=== PATIENT | male | born 1960 | race Caucasian/White ===

== ENCOUNTER 2021-10-24 11:58 | Outpatient (CLI) | payer OTHER, SELFPAY ==
--- NOTE | ~2021-10-24 | XR_ITS ---
EXAMINATION: XR ankle LT min 3V DATE: 10/24/2021 12:20 INDICATION: Left ankle pain TECHNIQUE: Anteroposterior, lateral, mortise, and additional oblique view of the ankle were obtained. COMPARISON: None. FINDINGS: No acute fracture is identified. There is heterotopic ossification lateral to the distal fi bula. There is moderate osteoarthritis of the tibiotalar joint. Mild osteoarthritis is noted in the m idfoot. There is soft tissue swelling of the visualized distal leg and ankle. More focal soft tissue swelling is seen near the Achilles insertion on the lateral view. IMPRESSION: 1. Soft tissue swelling, osteoarthritis, and sequela of prior injury without acute osseous abnormalit y identified. Reviewed, dictated and finalized at location A. LE ARCHITECT IMPRESSION: 1. Soft tissue swelling, osteoarthritis, and sequela of prior injury without ac tanana osseous abnormality identified.
== END 2021-10-24 11:59 | disposition home or self-care (01) ==
LOC: ANHLAB 12:06
PROVIDERS: PCP Internal Medicine; Visit Provider Internal Medicine
DX: M79.89 Other specified soft tissue disorders (principal); M19.072 Primary osteoarthritis, left ankle and foot
CPT/HCPCS: 73610

== ENCOUNTER 2021-11-29 07:59 | Outpatient (CLI) | payer OTHER, SELFPAY ==
--- NOTE | ~2021-11-29 | US_ITS ---
EXAMINATION: US art doppler w shin REN EXAM DATE: 11/29/2021 09:25 INDICATION: I73.9 - Peripheral vascular disease, unspecified. Leg edema, hypertension. TECHNIQUE: Segmental pressures and plethysmographic and Doppler waveforms of the brachial and lower e xtremity arteries were obtained. There is no prior study for comparison. FINDINGS: Right and left brachial artery pressures of 123 mm Hg and 129 mm Hg, respectively, are concordant (no rmal difference <= 30 mmHg). The right and left thigh-brachial pressure indices are 0.98, 1.51 respe ctively (normal > 1.2). RIGHT LEG: The ankle-brachial index (AKIRA) is 1.01 (normal >= 0.9-1). The great toe-brachial index (TBI) is 0.56 (normal >= 0.65). The lower extremity ratios, segmental pressure gradients as follows; Proximal superficial femoral artery:- 0.98 (127 mmHg). Distal superficial femoral artery: ----- 0.98 (127 mmHg). Popliteal: 1.03 (133 mmHg). Dorsalis pedis: 1.00 (129 mmHg). Posterior tibial: 1.01 (130 mmHg). (Normal gradients <= 20-30 mmHg between adjacent levels on the same leg or the same levels on the two legs). Arterial waveforms are biphasic through popliteal, monophas ic below. LEFT LEG: The ankle-brachial index (AKIRA) is 0.97 (normal >= 0.9-1). The great toe-brachial index (TBI) is 0.98 (normal >= 0.65). The lower extremity ratios, segmental pressure gradients as follows; Proximal superficial femoral artery:- 1.51 (195 mmHg). Distal superficial femoral artery: ----- 1.12 (144 mmHg). Popliteal: 1.09 (141 mmHg). Dorsalis pedis: 0.90 (116 mmHg). Posterior tibial: 0.97 (125 mmHg). (Normal gradients <= 20-30 mmHg between adjacent levels on the same leg or the same levels on the two legs). Arterial waveforms are biphasic. IMPRESSION: 1. Right ankle-brachial index 1.01, normal. 2. Left ankle-brachial index 0.97, normal. 3. Segmental pressures as above. Reviewed, dictated and finalized at location A. NTS EXAMINER
--- NOTE | ~2021-11-29 | US_ITS ---
EXAMINATION: US venous doppler LE BI EXAM DATE: 11/29/2021 09:25 INDICATION: R60.0 - Localized edema TECHNIQUE: Multiple grayscale, color flow and Doppler images of the lower extremity venous systems bi laterally were obtained and reviewed. Saphenous venous mapping. The exam was reviewed on 11/29/2021. There is no prior study for comparison. FINDINGS: Right side: The right common femoral, femoral and profunda veins demonstrate normal color flow, respi ratory variation, augmentation and compressibility. Compressibility, color flow confirmed within the right popliteal, posterior tibial, peroneal, and greater saphenous veins. Right Standing Venous Mapping: reflux seconds duration; vein size. Greater saphenous origin: 0 seconds; 0.4 mm. Greater saphenous mid thigh:------ 3 seconds; 0.26 mm. Greater saphenous below knee:--- 0 seconds; 0.28 mm. Lesser saphenous proximally:------ 0 seconds; 0.10 mm. Lesser saphenous distally: Not visualized. Left side: The left common femoral, femoral and profunda veins demonstrate normal color flow, respira tory variation, augmentation and compressibility. Compressibility, color flow confirmed within the l eft popliteal, posterior tibial, peroneal, and greater saphenous veins. Left Standing Venous Mapping: reflux seconds duration; vein size. Greater saphenous origin: 0 seconds; 0.41 mm. Greater saphenous mid thigh:------ 0 seconds; 0.20 mm. Greater saphenous below knee:--- 0 seconds; 0.19 mm. Lesser saphenous proximally:------ 0 seconds; 0.14 mm. Lesser saphenous distally: 0 seconds; 0.13 mm. IMPRESSION: 1. No lower extremity deep venous thrombosis bilaterally. 2. Right mid thigh greater saphenous venous reflux. Reviewed, dictated and finalized at location A. AIR HOST
== END 2021-11-29 08:00 | disposition home or self-care (01) ==
PROVIDERS: PCP Internal Medicine; Visit Provider Orthopaedic Surgery
DX: I73.9 Peripheral vascular disease, unspecified (principal); R60.0 Localized edema
CPT/HCPCS: 93923; 93970

== ENCOUNTER 2022-01-09 15:30 | Outpatient (RCR) | payer OTHER, SELFPAY ==
--- NOTE | 2021-12-15 16:07 | PTOPEVAL ---
PHYSICAL THERAPY EVALUATION AND PLAN OF CARE 12-15-21 Thank you for referring Emmanuel Arciniega to [facility] for the diagnosis of B LE lymphedema. He is scheduled to be seen for therapy? 2 x/week for 4 weeks. Please review, sign, date and return this plan of care MARILYN. I agree with and certify that the following plan of care is medically necessary. Referring Physician Date Attending Provider: Collins Gardner MD PT evaluation Document 12/15/21 15:05 ANG (Rec: 12/15/21 16:07 ANG [id number]) Past Medical History Source of Past Medical History Patient Neurological History Hx Neurological Disorders No Significant History Cardiovascular History Hx Hypertension Yes: meds control Respiratory History Hx Other Respiratory Disorders Yes: smoker Gastrointestinal History Hx Gastrointestinal Disorders No Significant History Genitourinary History Hx Genitourinary Disorders No Significant History Musculoskeletal History Hx Arthritis Yes: B knees; L ankle Hx Other Musculoskeletal Disorders Yes: L crush injury with reconstruction~42 yr ago,graft R calf; Endocrine History Hx Endocrine Disorders No Significant History Other History Hx Cancer Yes: oral cancer- surgical removal- 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 radiation Evaluation Information Problem Diagnosis B LE lymphedema Onset Oct 2021 Diagnostic Tests X-Rays For This Problem Yes: L ankle severe degenerative changes, osteophyte & ant impingement Prior Level of Function Activity Level (Last 3 Months) 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 Activity of Daily Living Ability Independent Indoor/Home Mobility Independent Community Mobility Independent Stairs Ability Independent Functional Cognition (Planning, Shopping Independent , Taking Medications) Cooking Yes Cleaning Yes Laundry Yes Shopping Yes Driving Yes Pain Assessment Timing of Pain Assessment Timing of Pain Assessment Assessment Pain Scale Pain Scale Used Numeric (1 - 10) Self Report Pain Assessment Bilateral Leg(s) Reported Pain Level 0 Pain Score Pain Score 0: Self Report Additional Pain Score Comments when legs were more swollen they were tender and hurt--now do not have pain Interventions Used Interventions Used By Clinicians Education Lower Extremity Range of Motion General Lower Extremity Range of Motion Gross Lower Extremity Range of Motion active ROM L ankle DF (-5'),PF Comments
--- NOTE | 2022-01-05 12:02 | PCPTNOTE ---
pt called and canceled today's appt due to bad weather;
--- NOTE | 2022-01-09 16:04 | PTOPEVAL ---
PHYSICAL THERAPY DISCHARGE 01-09-22 Refer to the clinical summary below, for his status today, compared to the initial evaluation. He has improved and the goals were achieved; therefore, he will be discharged from PT at this time. Thank you for referring Emmanuel Arciniega to [facility].? Please review, sign, date and return this Discharge report MARILYN. I agree with and certify that the following plan of care is medically necessary. Referring Physician Date Attending Provider: Collins Gardner MD Document 01/09/22 15:30 ANG (Rec: 01/09/22 16:04 ANG [id number]) Assessment Status Discharge Subjective Information Ed reports: compression socks Query Text:As Reported By Patient/ are comfortable, do not have Family any problems with getting them on/off; feels like ready to be finished with therapy; pleased with how his legs look and how small they are; Pain Assessment Self Report Pain Level 0 Skin Inspection Location Left Lower Extremity,Right Lower Extremity Palpation Findings Warm Skin Temperature Tissue Texture Normal Lymphedema Stage I Skin Inspection Comment R and L lower leg with good skin color/ no redness, without any firmness or fibrotic tissue; no tenderness with palpation; pt to dept with compression calf high garments intact; has been wearing them for the past 5 days; good fit; Mediven Plus, size V!, 20-30 mmHg, standard length with silicone band top; he reports comfort with them and not having any issues with fit or don/doffing them; education: reviewed self MLD; replacement of compression garments ~ every 6 months, or whenever they begin to lose their support; monitor skin; if he does start to have some swelling in legs, he has info for obtaining Solaris foot piece and Juxtafit to wear for compression at night with
== END 2022-01-10 15:34 | disposition home or self-care (01) ==
LOC: ANHPT 15:30
PROVIDERS: PCP Internal Medicine; Visit Provider Orthopaedic Surgery
DX: R60.0 Localized edema (principal)
CPT/HCPCS: 97140; 97161

== ENCOUNTER 2023-04-13 16:24 | Emergency (ER) | payer OTHER, SELFPAY ==
--- NOTE | ~2023-04-13 | XR_ITS ---
EXAMINATION: XR abdomen/kub 1V DATE: 04/13/2023 17:43 INDICATION: Constipation TECHNIQUE: A supine view of the abdomen on 2 radiographs was obtained. COMPARISON: None. FINDINGS: Moderate amount of gas and stool scattered throughout the colon with possibly 7 cm ball of stool at t he rectum. No dilated loops of gas-filled bowel to suggest obstruction. Lung bases are clear. Heart s ize is normal. Moderate bilateral hip and sacroiliac osteoarthritis. IMPRESSION: 1. Moderate amount of gas and stool in the colon most notable for a 7 cm ball of stool at the rectum consistent with provided history of constipation. Reviewed, dictated and finalized at location A. IMPRESSION: 1. Moderate amount of gas and stool in the colon most notable for a 7 cm ball o f stool at the rectum consistent with provided history of constipation.
[2023-04-13 16:31] VITALS: BP 131/56; PULSE 94; RESP 16; TEMP 36.8; O2SAT 93
--- NOTE | 2023-04-13 17:05 | ED.GENADULT ---
HPI - General Adult General Chief complaint: Unspecified Stated complaint: constipation Time Seen by Provider: 04/13/23 16:54 History of Present Illness HPI narrative: Patient is a 62-year-old male with a history of oral cancer currently undergoing chemotherapy and radiation here due to constipation. Patient states that he has had small caliber liquid stools for the past 3 days but has not had a full satisfying bowel movement. He denies any abdominal pain but does report some rectal fullness. Today he has had some urinary retention. No fevers, chills, nausea, vomiting. No history of small bowel obstructions, he has never had a colonoscopy. Related Data Home Medications Medication Instructions Recorded Confirmed tamsulosin 0.4 mg capsule (Flomax) 0.4 mg PO DAILY 11/16/19 03/14/22 finasteride 5 mg tablet 5 mg PO DAILY 09/06/21 03/14/22 sildenafil (pulm.hypertension) 20 20 mg PO DAILY 09/06/21 03/14/22 mg tablet Allergies Allergy/AdvReac Type Severity Reaction Status Date / Time Penicillins Allergy Mild Unknown Verified 04/13/23 16:44 Sulfa (Sulfonamide Allergy Mild Hives Verified 04/13/23 16:44 Antibiotics) Review of Systems Review of Systems: Gen.: Denies fevers or chills Eyes: Denies eye pain or visual change ENT: Denies congestion Respiratory: Denies shortness of breath or cough CV: Denies chest pain or palpitations GI: Reports constipation denies burning, urgency, frequency or hematuria Musculoskeletal: Denies back pain or muscle pain Neuro: Denies numbness, tingling, weakness or focal weakness Skin: Denies rash Except as documented, all other systems reviewed and negative [facility] Past Medical History Medical History Arterial insufficiency of lower extremity Arthritis Bilateral lower extremity edema HTN (hypertension) Surgical History Surgical History History of ankle surgery Left ankle/heel reconstruction on 11/13/79 d/t crush injury at work per patient questionnaire History of cataract removal with insertion of prosthetic lens Family History Family History Sibling Family history of diabetes mellitus in first degree relative, Onset Age: 45 Patient's brother is Father Patient's father is Mother Patient's mother is Social History Social History Smoking packs per day: 0.5 Smoking cigarettes per day: 10.0 Smoking status: Current every day smoker Tobacco type: cigarettes Second hand tobacco smoke exposure: No Alcohol intake: current Drinks per week: 14 Substance use: never Substance use type: does not use Occupation/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 Head: Normocephalic and atraumatic. EYES: PERRLA/EOMI, conjunctivae clear NOSE: No nasal drainage EARS: External ear normal in appearance THROAT: Oropharynx is clear. Mucous membranes are moist. NECK: Supple. No adenopathy, no masses. RESPIRATORY: Airway patent, respirations nonlabored. Clear to auscultation bilaterally, no rales, rhonchi, wheezing. CARDIOVASCULAR: Regular rate and rhythm without murmurs, rubs, or gallops. ABDOMINAL: Normoactive bowel sounds. Soft, nontender, nondistended. No rebound tenderness or guarding. MUSCULOSKELETAL: Extremities are warm and well-perfused. Moves all extremities well. No edema. NEURO: Normal speech. No focal neurologic deficits. SKIN: Skin is warm and dry. No rashes. PSYCHIATRIC: Normal affect/mood.. Course Vital Signs Vital signs: Vital Signs Temperature 98.3 F 04/13/23 16:31 Pulse Rate 94
[2023-04-13 17:35] LABS: Eosinophils Percent Auto 0.3 % (0-4.4); Hematocrit 28.8 % (42.0-52.0); Hemoglobin 9.8 g/dL (14.0-18.0); Immature Granulocyte Absolute 0.03 K/mm3 (0.00-0.031); Immature Granulocyte Percent A 0.8 % (0-0.5); Lymphocytes Absolute Auto 0.28 K/mm3 (0.9-3.2); Lymphocytes Percent Auto 7.1 % (18.3-44.2); Mean Corpuscular Hemoglobin 32.7 pg (26-34); Mean Platelet Volume 8.3 fl (7.4-10.4); Monocytes Absolute Auto 0.3 K/mm3 (0.1-0.6); Monocytes Percent Auto 6.3 % (2.6-8.5); Neutrophils Absolute Auto 3.4 K/mm3 (1.3-6.7); Neutrophils Percent Auto 85.5 % (45.5-73.1); Platelet Count Result 151 k/mm3 (150-375); Red Cell Distribution Width 12.8 % (11.5-14.5)
[2023-04-13 17:55] LABS: Lipase 40 U/L (23-300)
[2023-04-13] MEDS: MAGNESIUM HYDROXIDE SUSP 30 ML UDC PO (18:05)
[2023-04-13 18:09] LABS: Alanine Aminotransferase 19 U/L (6-50); Albumin Level 4.3 g/dL (3.5-5.1); Alkaline Phosphatase 78 U/L (38-126); Anion Gap 9 mmol/L (8-16); Aspartate Amino Transferase 20 U/L (17-59); Bilirubin,Total 0.9 mg/dL (0.2-1.3); Blood Urea Nitrogen 25 mg/dL (9-20); Carbon Dioxide 26 mmol/L (22-30); Chloride 100 mmol/L (98-107); Estimated CRCL calculation 64 ml/min; Estimated Glomerular Filt Rate > 60; Glucose 127 mg/dL (65-110); Magnesium 1.7 mg/dL (1.6-2.3); Potassium 4.3 mmol/L (3.4-5.0); Sodium 135 mmol/L (137-145)
--- NOTE | 2023-04-13 19:02 | PC.NURSE ---
Patient unable to retain enema. patient on bedside commode at this time attempting to have a bowel movement
[2023-04-13 19:48] VITALS: BP 122/56; PULSE 73; RESP 15; O2SAT 97
== END 2023-04-13 19:56 | disposition home or self-care (01) ==
PROVIDERS: Emergency Provider Physician Assistant; PCP Internal Medicine
DX: K59.00 Constipation, unspecified (principal); F17.210 Nicotine dependence, cigarettes, uncomplicated; M19.90 Unspecified osteoarthritis, unspecified site; I10 Essential (primary) hypertension
CPT/HCPCS: 36415; 74018; 80053; 83690; 83735; 85025; 99283; A9270

== ENCOUNTER 2024-02-03 12:01 | Inpatient (IN) | payer OTHER, SELFPAY ==
--- NOTE | ~2024-02-03 | CT_ITS ---
EXAMINATION: CT abdomen pelvis w con DATE: 02/03/2024 17:19 INDICATION: abdominal pain TECHNIQUE: Computed tomography (CT) of the abdomen and pelvis was performed with 100 mL Omnipaque-350 intravenous contrast. Automated exposure control and iterative reconstruction technique were employe d. The dose-length product was 548.74 mGy-cm. COMPARISON: X-ray chest 07/01/2012. FINDINGS: Lower thorax: 1.4 cm right middle lobe nodule, not significantly changed since the chest radiograph 2011, benign. Coronary artery calcifications. Minimal dependent scar/atelectasis. Liver: Subcentimeter left lobe cysts/hemangiomas. Biliary/Gallbladder: Gallbladder is normal. No bile duct dilation. Pancreas: Moderate atrophy. Spleen: Normal. Adrenals:No mass. Kidneys: No suspicious mass, obstructing stone, or hydronephrosis. Multiple bilateral simple cysts an d subcentimeter hypodensities that also likely represent cysts. GI tract: Moderate distal esophageal and gastric wall edema. Diffuse colonic wall edema. No small or large bowel dilation. Appendix not visualized. Mesentery/Peritoneum: Small volume ascites. No mesenteric mass or free air. Retroperitoneum: No mass. Atherosclerotic abdominal aortic and/or arterial calcifications. Pelvis: Pelvic organs are within normal limits. Soft Tissues: Small fat-containing uncomplicated umbilical and bilateral inguinal hernias. Large righ t hydrocele. Bones: No acute osseous finding. IMPRESSION: Moderate esophagitis/gastritis. Diffuse colitis. Small volume ascites. Large right hydrocele Reviewed, dictated and finalized at location K.
[2024-02-03 12:04] VITALS: BP 107/52; PULSE 93; RESP 18; TEMP 36.4; O2SAT 94
--- NOTE | 2024-02-03 13:31 | ED.GENADULT ---
HPI - General Adult General Chief complaint: Abdominal Pain <Cinda Silvestre LAWN SPECIALIST - Last Filed: 02/03/24 13:36> Stated complaint: abd pain <Cinda Alas March LAWN SPECIALIST - Last Filed: 02/03/24 13:36> Time Seen by Provider: 02/03/24 13:31 <Cinda Alas March LAWN SPECIALIST - Last Filed: 02/03/24 13:36> Focused HPI: Emmanuel Arciniega is a 63 y/o male reports of having diarrhea for about 4 weeks and having abdominal pain/ abdominal bloating. No fever/chills. No nausea/vomiting Hx of mouth/tongue CA and finished radiation about 6 weeks ago. Denies noticing any blood in his stool GENERAL: and in no acute distress. HEAD: Normocephalic, atraumatic. CHEST: Clear to auscultation. ?No respiratory distress. HEART: Regular rate and rhythm.? NEURO: ?Alert and oriented x3. Patient screened in triage and initial orders placed.? ?Additional care and disposition to be based upon?diagnostic testing and treatment. <Cinda Alas March, LAWN SPECIALIST - Last Filed: 02/03/24 13:36> History of Present Illness HPI narrative: 63-year-old male presenting with diarrhea and abdominal pain. 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 His is at bedside and helps with the history. States that he was taking a lot of antibiotics around this time. Approximately 4 weeks ago he developed diarrhea. His PCP sent in for antidiarrheal medication but unfortunately the diarrhea has continued. Complains of intermittent lower abdominal cramping. States that he has diarrhea even whenever he just tries to urinate now. Reports decreased appetite but no vomiting. No chest pain or shortness of breath. No further complaints. <Sita Ferreira MD - Last Filed: 02/07/24 21:44> Related Data Home medications: Home Medications Medication Instructions Recorded Confirmed tamsulosin 0.4 mg capsule (Flomax) 0.4 mg PO HS 11/16/19 02/03/24 finasteride 5 mg tablet 5 mg PO DAILY 09/06/21 02/03/24 gabapentin 400 mg capsule 400 mg PO Q6H 02/03/24 02/03/24 prednisone 5 mg tablet 5 mg PO DAILY 02/03/24 02/03/24 <Cinda Alas March, - Last Filed: 02/03/24 13:36> Allergies/adverse reactions: Allergies Allergy/AdvReac Type Severity Reaction Status Date / Time Penicillins Allergy Mild Unknown Verified 02/03/24 23:15 Sulfa (Sulfonamide Allergy Mild Hives Verified 02/03/24 23:15 Antibiotics) <Cinda Alas March, - Last Filed: 02/03/24 13:36> Review of Systems Review of Systems: All systems reviewed & are unremarkable except as noted in HPI and below <Sita Ferreira MD - Last Filed: 02/07/24 21:44> [facility] Past Medical History Medical History: Medical History (Updated 02/05/24 @ 13:03 by Farzad Tipton APRN) Arterial insufficiency of lower extremity Arthritis Hypertension Polymyalgia rheumatica <Cinda Alas March, - Last Filed: 02/03/24 13:36> Surgical History Surgical History: Surgical History (Updated 02/04/24 @ 01:04 by Yodit Vazquez PA-C) History of ankle surgery Left ankle/heel reconstruction on 11/13/79 d/t crush injury at work per patient questionnaire History of cataract removal with insertion of prosthetic lens History of oral surgery 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 <Cinda Alas March, - Last Filed: 02/03/24 13:36> Family History Family History: Family History Sibling Family history of diabetes mellitus in first degree relative, Onset Age: 45 Patient's brother is Father Patient's father is Mother Patient's mother is <Cinda Alas March, - Last Filed: 02/03/24 13:36> Social History Social History: Social History (Updated 02/04/24 @ 01:05 by Yodit Vazquez PA-C) Social History: Surrogate medical decision maker: Molly Arciniega, spouse. Code status: Full code. Smoking packs per day: 0.5 Smoking cigarettes per day: 10.0 Years smoked: 40 Smok
--- NOTE | 2024-02-03 15:38 | PC.NURSE ---
1526 called from waiting room for MSE interventions, no response
[2024-02-03 16:26] LABS: Hematocrit 28.4 % (42.0-52.0); Hemoglobin 9.2 g/dL (14.0-18.0); Mean Corpuscular HGB Conc 32.4 g/dl (32-36); Mean Corpuscular Hemoglobin 30.8 pg (26-34); Mean Platelet Volume 9.1 fl (7.4-10.4); Platelet Count Result 236 k/mm3 (150-375); Red Blood Count 2.99 M/mm3 (4.6-6.20); Red Cell Distribution Width 13.6 % (11.5-14.5); White Blood Count 23.7 K/mm3 (4.5-10.0)
[2024-02-03 16:46] LABS: Alanine Aminotransferase 13 U/L (6-50); Albumin Level 2.8 g/dL (3.5-5.1); Alkaline Phosphatase 116 U/L (38-126); Anion Gap 5 mmol/L (8-16); Aspartate Amino Transferase 22 U/L (17-59); Bilirubin,Total 1.2 mg/dL (0.2-1.3); Blood Urea Nitrogen 36 mg/dL (9-20); Calcium 7.8 mg/dL (8.4-10.2); Carbon Dioxide 24 mmol/L (22-30); Chloride 96 mmol/L (98-107); Estimated CRCL calculation 40 ml/min; Estimated Glomerular Filt Rate 41; Glucose 95 mg/dL (65-110); Potassium 4.6 mmol/L (3.4-5.0); Sodium 125 mmol/L (137-145)
[2024-02-03 16:47] LABS: Appearance Urine Cloudy (Clear); Bacteria Urine None Seen /hpf; Bilirubin Urine 2+ (Negative); Blood Urine Negative (Negative); Color Urine Dark Yellow (Yellow); Glucose Urine UA Negative (Negative); Ketones Urine Trace mg/dL (Negative); Leukocyte Esterase Ur Trace LEU/UL (Negative); Need Manual Microscopic Reviewed; Nitrate Urine Negative (Negative); Protein Urine 1+ mg/dL (Negative); RBC Urine 0-2 /hpf (0-2); Specific Grav Ur 1.023 (1.001-1.035); Squamous Epithelial Cell Urine Few /hpf (Few); WBC Urine 0-5 /hpf (0-3)
[2024-02-03 16:48] LABS: Add Urine Microscopic? YES
[2024-02-03 16:54] LABS: Lipase < 10 U/L (23-300)
[2024-02-03 16:55] LABS: Band Neutrophils Percent 8 % (0-6); Lymphocytes Absolute Manual 0.94 K/mm3 (1.1-4.5); Monocytes Absolute Manual 1.89 K/mm3 (0.1-0.90); Monocytes Percent Manual 8 % (3-9); Neutrophils Absolute Manual 20.85 K/mm3 (1.3-6.7); Neutrophils Percent Manual 80 % (46-73); Total Cells Counted 100
[2024-02-03 16:56] LABS: Platelet Estimate Adequate (Adequate); Schistocytes None Seen
[2024-02-03] MEDS: SODIUM CHLORIDE 0.9% IV 1,000 ML 999 ML IV CONT ×2 (17:42)
[2024-02-03 19:55] VITALS: BP 104/52; PULSE 73; RESP 17; O2SAT 93
[2024-02-03 21:56] LABS: Anion Gap 4 mmol/L (8-16); Blood Urea Nitrogen 32 mg/dL (9-20); Calcium 7.1 mg/dL (8.4-10.2); Carbon Dioxide 22 mmol/L (22-30); Chloride 100 mmol/L (98-107); Estimated CRCL calculation 45 ml/min; Estimated Glomerular Filt Rate 47; Glucose 84 mg/dL (65-110); Potassium 4.2 mmol/L (3.4-5.0); Sodium 126 mmol/L (137-145)
[2024-02-03 21:57] LABS: Lactic Acid Reflex 0.7 mmol/L (0.7-2.0)
[2024-02-03 23:03] VITALS: BMI 22.6
--- NOTE | 2024-02-03 23:03 | ADMGEN ---
This patient, Emmanuel Arciniega, was admitted to Medical Room 254-01. Patient/family oriented to hospital policies and general routines including ID bracelet, bed and alarms, visiting hours, pain management, procedures, bathroom and other care routines, personal items, smoking policy, room service/diet, and visiting hours. Information on how to activate the Rapid Response Team has been discussed. Patient/Family are encouraged to report perceived risks to care and to ask questions if they do not understand what they are told or what they should do.
[2024-02-03 23:06] VITALS: BP 108/46; PULSE 83; RESP 16; TEMP 36.9; O2SAT 93
[2024-02-04 00:29] LABS: Glucose Point of Care 89 mg/dl (65-105)
--- NOTE | 2024-02-04 00:49 | PM.IMHP ---
H&P: HPI History of Present Illness Date/Time: 02/03/24 21:45 Chief Complaint: Abdominal pain and diarrhea. Narrative: This is a pleasant 63-year-old male smoker with 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 The patient provides the following history. He finished radiation approximately 6 weeks ago and during that treatment he was reportedly on several different antibiotics for unclear reasons. The last 4 weeks he has had multiple episodes of watery, foul-smelling stools which have been yellow in color. The last several days he has developed intermittent, diffuse abdominal discomfort and cramping. His appetite has not been great but he is able to eat now and has had his feeding tube removed. He is starting to feel a bit weak and occasionally lightheaded with position changes. He denies fever, chills, sweats, hematemesis, melena, and hematochezia. No recent travel or sick contacts. No history of C diff. In the ED: He was afebrile on arrival. Blood pressures have been running at the low end of normal. Labs were significant for WBC count of 23.7 with 8% bands, hemoglobin 9.2, sodium 125, chloride 96, BUN 36, creatinine 1.70, lactic acid 0.7, total protein 5.0, albumin 2.8. CT of the abdomen pelvis showed moderate esophagitis/gastritis, diffuse colitis, small volume ascites, and large right hydrocele. He was given a 2 L normal saline bolus and was started on fidaxomicin for suspected C diff and he is being admitted in this setting for further hydration. Review of Systems Review of Systems: Twelve systems were reviewed and are negative except for as per HPI. 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 Family History Family History Sibling Family history of diabetes mellitus in first degree relative, Onset Age: 45 Patient's brother is Father Patient's father is Mother Patient's mother is Social History Social History (Updated 02/04/24 @ 01:05 by Yodit Vazquez PA-C) Social History: Surrogate medical decision maker: Molly Arciniega, spouse. Code status: Full code. Smoking packs per day: 0.5 Smoking cigarettes per day: 10.0 Years smoked: 40 Smoking pack-years: 20.00 Smoking status: Current every day smoker Tobacco type: cigarettes Second hand tobacco smoke exposure: No Alcohol intake: current Drinks per week: 14 Substance use: never Substance use type: does not use Do You Feel Safe in your Home?: Yes Lack of Transportation: No Lack of Food: Never True Current Housing: I Have Housing Concerned About Future Housing: No Difficulty Paying Gas/Electric Bills: No Difficulty Paying for Meds: No Currently Unemployed: No Education: High School Diploma/GED Difficulty w/ Childcare or Family Care: No Occupation/Education: occupation Additional occupation/education comments: Maintenance Gender identity (if verbalized by the patient): Male Spiritual care concerns: No Meds Home Medications and Allergies Home Medications Medication Instructions Recorded Confirmed Type tamsulosin 0.4 mg capsule (Flomax) 0.4 mg PO HS 11/16/19 02/03/24 History finasteride 5 mg tablet 5 mg PO DAILY 09/06/21 02/03/24 History gabapentin 400 mg
[2024-02-04] MEDS: SODIUM CHLORIDE 0.9% IV 1,000 ML 150 ML IV CONT ×3 (01:42→17:40)
[2024-02-04 01:51] LABS: Creatinine Urine 208.2 mg/dL
[2024-02-04 02:35] LABS: Sodium Urine Random < 5 meq/L
[2024-02-04] MEDS: metroNIDAZOLE 500 MG/ISO 100ML 500 MG/100 ML BAG 100 MG IVPB (03:29)
[2024-02-04 05:23] LABS: Toxigenic C. Diff POSITIVE (NEGATIVE)
[2024-02-04] MEDS: GABAPENTIN 400 MG CAPSULE PO ×3 (05:40→17:40)
[2024-02-04 05:57] VITALS: BP 110/49; PULSE 86; RESP 18; TEMP 37.2; O2SAT 92
[2024-02-04 05:57] LABS: Hemoglobin 7.9 g/dL (14.0-18.0); Mean Corpuscular HGB Conc 31.6 g/dl (32-36); Mean Corpuscular Hemoglobin 30.6 pg (26-34); Mean Corpuscular Volume 96.9 fl (80-100); Mean Platelet Volume 8.9 fl (7.4-10.4); Platelet Count Result 229 k/mm3 (150-375); Red Blood Count 2.58 M/mm3 (4.6-6.20); Red Cell Distribution Width 13.6 % (11.5-14.5); White Blood Count 16.9 K/mm3 (4.5-10.0)
[2024-02-04 06:05] LABS: Anion Gap 2 mmol/L (8-16); Blood Urea Nitrogen 32 mg/dL (9-20); Calcium 7.1 mg/dL (8.4-10.2); Carbon Dioxide 22 mmol/L (22-30); Chloride 102 mmol/L (98-107); Estimated CRCL calculation 50 ml/min; Estimated Glomerular Filt Rate 51; Glucose 82 mg/dL (65-110); Magnesium 2.3 mg/dL (1.6-2.3); Potassium 4.1 mmol/L (3.4-5.0); Sodium 126 mmol/L (137-145)
--- NOTE | 2024-02-04 07:44 | PM.IMPN ---
Progress Note: A&P Assessment and Plan (1) C. difficile colitis: Code(s): A04.72 - Enterocolitis due to Clostridium difficile, not specified as recurrent Status: Acute Assessment and Plan: [address] of diarrhea with CT imaging diffuse colitis. C diff positive. Patient started on Dificid after receiving 1 dose of IV metronidazole. On continuous IV fluids due to low oral intake as well as significant dehydration resulting in KEELEY and hyponatremia. (2) KEELEY (acute kidney injury): Code(s): N17.9 - Acute kidney failure, unspecified Status: Acute Assessment and Plan: Last known baseline creatinine 1-1.1 with greater than 60 estimated GFR. On admission creatinine was 1.7 and estimated GFR 41. This morning creatinine 1.4 with estimated GFR 51. Continue IV fluids and recheck tomorrow. (3) Hyponatremia: Code(s): E87.1 - Hypo-osmolality and hyponatremia Status: Acute Assessment and Plan: Baseline sodium level appears to be 135-136 on prior labs, was 125 on admission and 126 this morning after IV fluids. Urine sodium less than 5. Continue IV fluids at this time and monitor for signs of fluid overload. (4) Dehydration: Code(s): E86.0 - Dehydration Status: Acute Assessment and Plan: see above (5) Protein calorie malnutrition: Code(s): E46 - Unspecified protein-calorie malnutrition Status: Acute Assessment and Plan: Soft diet, regular food choices. Encourage oral intake to replace diarrhea stools. Decreased appetite due to abdominal discomfort and colitis. Start Banotrol as recommended by Metal Buffer. (6) Hypertension: Code(s): I10 - Essential (primary) hypertension Status: Chronic Assessment and Plan: History of hypertension with borderline low blood pressures since admission likely due to KEELEY and dehydration. Will hold home antihypertensives at this time. (7) Polymyalgia rheumatica: Code(s): M35.3 - Polymyalgia rheumatica Status: Chronic Assessment and Plan: continue low-dose oral prednisone daily Time Spent With Patient Time with patient: Greater than 35 minutes Subjective Date/time seen: 02/04/24 07:44 Interval history: Patient was admitted after experiencing 4 weeks of diarrhea since being on multiple rounds of antibiotics. CT scanning shows diffuse colitis. Clinical suspicion by previous provider was C diff infection and he was started on Dificid. C diff was positive. This morning patient reports generalized abdominal pain states he has not received anything for pain at this point. He notes that he still having significant diarrhea. Initial labs yesterday had white blood cell count near 24,000 today that is down to 16.9. Hemoglobin was around 9 yesterday is down to 7.9 this morning but likely to be delusional due to IV fluid boluses and maintenance fluids at high rate. Patient has had prior oral surgery due to cancer and requires softer foods to to. He was previously started a clear liquid diet which we will advanced to regular. Patient will also be started on Banotrol due to recurrent loose stools. Will monitor daily labs. Sodium level noted to be 125 on admission is still 126 this morning. renal labs show what appears to be in KEELEY. Ordered iron studies and B12/ folate due to anemia. Suspect that anemia is due to slow loss from colon inflammation with frequent diarrhea as well some mild low iron/low iron binding capacity. I spoke with patient's on the phone to update on condition and anticipated course hospitalization including likely 4-7 day stay. Review of Systems Review of Systems: All systems reviewed & are unremarkable except as noted in HPI and below Gastrointestinal: Comments: Diarrhea and generalized abdominal pain Exam Narrative: General: Mildly ill-appearing male sitting up in bed in no acute distress. Weight: 73.5 kg. BMI 22.6. HEENT: [place]. S
[2024-02-04] MEDS: predniSONE 5 MG TABLET PO (09:31)
[2024-02-04] MEDS: FIDAXOMICIN 200 MG TABLET PO ×3 (09:31→20:06)
[2024-02-04] MEDS: HYDROcodone/acetaminophen (*CRX) 5-325 MG TABLET 1 TAB PO ×2 (09:31→20:06)
[2024-02-04] MEDS: PANTOPRAZOLE SODIUM IV 40 MG VIAL IV PUSH ×2 (09:32→20:10)
[2024-02-04] MEDS: FINASTERIDE 5 MG TABLET PO (09:32)
[2024-02-04 09:46] LABS: Iron 31 ug/dL (49-181)
[2024-02-04 09:57] LABS: Percent Iron Saturation 21 % (20-50)
[2024-02-04 13:32] VITALS: BMI 23.1
[2024-02-04 14:00] VITALS: BP 112/58; PULSE 84; RESP 18; TEMP 36.5; O2SAT 93
[2024-02-04] MEDS: FERROUS SULFATE 325 MG TABLET DR PO (17:40)
[2024-02-04 20:00] VITALS: BP 109/51
[2024-02-04] MEDS: TAMSULOSIN HCL 0.4 MG CAPSULE PO (20:10)
[2024-02-04 22:00] VITALS: PULSE 79; RESP 17; TEMP 37.1; O2SAT 95
[2024-02-04 22:30] VITALS: BP 109/51; BP 111/51; BP 122/50
[2024-02-04 22:32] VITALS: BP 122/50
[2024-02-05] VITALS (11 sets, daily range): BP systolic 86–116; BP diastolic 46–54; PULSE 75–84; RESP 16–18; TEMP 36.4–36.8; O2SAT 90–96
[2024-02-05] MEDS: SODIUM CHLORIDE 0.9% IV 1,000 ML 150 ML IV CONT ×2 (00:10→14:12)
[2024-02-05] MEDS: GABAPENTIN 400 MG CAPSULE PO ×5 (00:10→23:12)
[2024-02-05 06:11] LABS: Basophils Percent Auto 0.2 % (0.2-1.2); Eosinophils Absolute Auto 0.1 K/mm3 (0-0.3); Eosinophils Percent Auto 0.5 % (0-4.4); Hematocrit 27.3 % (42.0-52.0); Hemoglobin 8.6 g/dL (14.0-18.0); Immature Granulocyte Percent A 1.2 % (0-0.5); Lymphocytes Absolute Auto 0.31 K/mm3 (0.9-3.2); Lymphocytes Percent Auto 1.9 % (18.3-44.2); Mean Corpuscular HGB Conc 31.5 g/dl (32-36); Mean Corpuscular Hemoglobin 30.9 pg (26-34); Mean Corpuscular Volume 98.2 fl (80-100); Mean Platelet Volume 8.8 fl (7.4-10.4); Monocytes Absolute Auto 0.6 K/mm3 (0.1-0.6); Monocytes Percent Auto 3.4 % (2.6-8.5); Neutrophils Absolute Auto 15.4 K/mm3 (1.3-6.7); Neutrophils Percent Auto 92.8 % (45.5-73.1); Platelet Count Result 233 k/mm3 (150-375); Red Blood Count 2.78 M/mm3 (4.6-6.20); Red Cell Distribution Width 13.7 % (11.5-14.5); White Blood Count 16.6 K/mm3 (4.5-10.0)
[2024-02-05 06:36] LABS: Alanine Aminotransferase 12 U/L (6-50); Albumin Level 2.3 g/dL (3.5-5.1); Alkaline Phosphatase 94 U/L (38-126); Anion Gap 5 mmol/L (8-16); Aspartate Amino Transferase 14 U/L (17-59); Bilirubin,Total 0.6 mg/dL (0.2-1.3); Blood Urea Nitrogen 27 mg/dL (9-20); Calcium 6.9 mg/dL (8.4-10.2); Carbon Dioxide 20 mmol/L (22-30); Chloride 103 mmol/L (98-107); Estimated CRCL calculation 54 ml/min; Estimated Glomerular Filt Rate 55; Glucose 99 mg/dL (65-110); Magnesium 2.3 mg/dL (1.6-2.3); Potassium 3.8 mmol/L (3.4-5.0); Sodium 128 mmol/L (137-145)
[2024-02-05 06:39] LABS: Burr Cells 2+; Ovalocytes 1+; Platelet Estimate Adequate (Adequate); Schistocytes None Seen
--- NOTE | 2024-02-05 08:05 | PM.IMPN ---
Progress Note: A&P Assessment and Plan (1) C. difficile colitis: Code(s): A04.72 - Enterocolitis due to Clostridium difficile, not specified as recurrent Status: Acute Assessment and Plan: [address] of diarrhea [address] CT imaging diffuse colitis. C diff positive. Patient started on Dificid after receiving 1 dose of IV metronidazole. On continuous IV fluids due to low oral intake as well as significant dehydration resulting in KEELEY and hyponatremia. 02/04: Decrease in loose stools reported overnight. Continue Dificid and Banatrol (2) KEELEY (acute kidney injury): Code(s): N17.9 - Acute kidney failure, unspecified Status: Acute Assessment and Plan: Last known baseline creatinine 1-1.1 with greater than 60 estimated GFR. On admission creatinine was 1.7 and estimated GFR 41. This morning creatinine 1.4 with estimated GFR 51. Continue IV fluids and recheck tomorrow. 02/04: Cr 1.3, BUN 27, eGFR 54 (3) Hyponatremia: Code(s): E87.1 - Hypo-osmolality and hyponatremia Status: Acute Assessment and Plan: Baseline sodium level appears to be 135-136 on prior labs, was 125 on admission and 126 this morning after IV fluids. Urine sodium less than 5. Continue IV fluids at this time and monitor for signs of fluid overload. 02/04: Sodium 128 on AM labs, recheck at 1630 to see if we can stop continuous IV fluids (4) Dehydration: Code(s): E86.0 - Dehydration Status: Resolved Assessment and Plan: see above (5) Protein calorie malnutrition: Code(s): E46 - Unspecified protein-calorie malnutrition Status: Acute Assessment and Plan: Soft diet, regular food choices. Encourage oral intake to replace diarrhea stools. Decreased appetite due to abdominal discomfort and colitis. Start Banotrol as recommended by Project Architect. 02/04: Banatrol to be supplied to patient in another way so he can tolerate. (6) Hypertension: Code(s): I10 - Essential (primary) hypertension Status: Chronic Assessment and Plan: History of hypertension with borderline low blood pressures since admission likely due to KEELEY and dehydration. Will hold home antihypertensives at this time. 02/04: Blood pressure reviewed on 02/04, soft, continue to hold antihypertensives. 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 The patient provides the following history. He finished radiation approximately 6 weeks ago and during that treatment he was reportedly on several different antibiotics for unclear reasons. The last 4 weeks he has had multiple episodes of watery, foul-smelling stools which have been yellow in color. The last several days he has developed intermittent, diffuse abdominal discomfort and cramping. His appetite has not been great but he is able to eat now and has had his feeding tube removed. He is starting to feel a bit weak and occasionally lightheaded with position changes. He denies fever, chills, sweats, hematemesis, melena, and hematochezia. No recent travel or sick contacts. No history of C diff. In the ED: He was afebrile on arrival. Blood pressures have been running at the low end of normal. Labs were significant for WBC count of 23.7 with 8% bands, hemoglobin 9.2, sodium 125, chloride 96, BUN 36, creatinine 1.70, lactic acid 0.7, total protein 5.0, albumin 2.8. CT of the abdomen pelvis showed moderate esophagitis/gastritis, diffuse colitis, small volume a
[2024-02-05] MEDS: FINASTERIDE 5 MG TABLET PO (09:28)
[2024-02-05] MEDS: FERROUS SULFATE 325 MG TABLET DR PO ×2 (09:28→17:05)
[2024-02-05] MEDS: FIDAXOMICIN 200 MG TABLET PO ×2 (09:28→20:27)
[2024-02-05] MEDS: predniSONE 5 MG TABLET PO (09:29)
[2024-02-05 10:18] LABS: NT Pro B Type Natriuretic Pept 582 pg/mL (19.9-100)
[2024-02-05] MEDS: PANTOPRAZOLE 40 MG TABLET PO ×2 (10:28→20:27)
--- NOTE | 2024-02-05 13:14 | WPDCDIQUERY2 ---
CDI Query Clarification Request Based on clinical information documented in the medical record this patient has been diagnosed with PROTEIN CALORIE MALNUTRITION. Documentation in the medical record also includes: Protein calorie malnutrition: ?Code(s): E46 - Unspecified protein-calorie malnutrition ?Status:?Acute ?Assessment and Plan: Soft diet, regular food choices.? Encourage oral intake to replace diarrhea stools.? Decreased appetite due to abdominal discomfort and colitis.? Start Banotrol as recommended by Billing Representative. Based on your medical judgement can you further clarify the severity . if known, such as: Mild Moderate Severe Other/ Unspecified <Alyssa Fleming RN - Last Filed: 02/05/24 13:19> Clarified Diagnosis Clarified Diagnosis: Moderate protein calorie malnutrition <Farzad Tipton, EDUCATIONAL INSTITUTION PRESIDENT - Last Filed: 02/05/24 13:21>
[2024-02-05 18:19] LABS: Albumin Level 2.5 g/dL (3.5-5.1); Anion Gap 4 mmol/L (8-16); Blood Urea Nitrogen 25 mg/dL (9-20); Carbon Dioxide 19 mmol/L (22-30); Chloride 102 mmol/L (98-107); Estimated CRCL calculation 54 ml/min; Estimated Glomerular Filt Rate 55; Glucose 103 mg/dL (65-110); Phosphorus 2.9 mg/dL (2.5-4.5); Potassium 4.6 mmol/L (3.4-5.0); Sodium 125 mmol/L (137-145)
[2024-02-05] MEDS: HYDROcodone/acetaminophen (*CRX) 5-325 MG TABLET 1 TAB PO (20:27)
[2024-02-05] MEDS: TAMSULOSIN HCL 0.4 MG CAPSULE PO (20:27)
[2024-02-06] MEDS: GABAPENTIN 400 MG CAPSULE PO ×2 (05:13→12:40)
[2024-02-06 05:54] LABS: Basophils Percent Auto 0.3 % (0.2-1.2); Eosinophils Absolute Auto 0.1 K/mm3 (0-0.3); Eosinophils Percent Auto 0.7 % (0-4.4); Hematocrit 25.8 % (42.0-52.0); Hemoglobin 8.2 g/dL (14.0-18.0); Immature Granulocyte Absolute 0.29 K/mm3 (0.00-0.031); Immature Granulocyte Percent A 1.9 % (0-0.5); Lymphocytes Absolute Auto 0.27 K/mm3 (0.9-3.2); Lymphocytes Percent Auto 1.8 % (18.3-44.2); Mean Corpuscular HGB Conc 31.8 g/dl (32-36); Mean Corpuscular Hemoglobin 31.1 pg (26-34); Mean Corpuscular Volume 97.7 fl (80-100); Mean Platelet Volume 9.1 fl (7.4-10.4); Monocytes Absolute Auto 0.6 K/mm3 (0.1-0.6); Monocytes Percent Auto 4.1 % (2.6-8.5); Neutrophils Absolute Auto 13.7 K/mm3 (1.3-6.7); Neutrophils Percent Auto 91.2 % (45.5-73.1); Platelet Count Result 202 k/mm3 (150-375); Red Blood Count 2.64 M/mm3 (4.6-6.20); Red Cell Distribution Width 13.8 % (11.5-14.5); White Blood Count 15.1 K/mm3 (4.5-10.0)
[2024-02-06 06:00] VITALS: BP 100/53; PULSE 78; RESP 16; TEMP 36.5; O2SAT 91
[2024-02-06 06:07] LABS: Alanine Aminotransferase 11 U/L (6-50); Albumin Level 2.1 g/dL (3.5-5.1); Alkaline Phosphatase 84 U/L (38-126); Anion Gap 7 mmol/L (8-16); Aspartate Amino Transferase 14 U/L (17-59); Bilirubin,Total 0.8 mg/dL (0.2-1.3); Blood Urea Nitrogen 24 mg/dL (9-20); Calcium 6.9 mg/dL (8.4-10.2); Carbon Dioxide 16 mmol/L (22-30); Chloride 104 mmol/L (98-107); Estimated CRCL calculation 50 ml/min; Estimated Glomerular Filt Rate 51; Glucose 93 mg/dL (65-110); Magnesium 2.3 mg/dL (1.6-2.3); Potassium 3.9 mmol/L (3.4-5.0); Sodium 127 mmol/L (137-145)
[2024-02-06 07:19] LABS: Platelet Estimate Adequate (Adequate)
[2024-02-06 07:23] LABS: Acanthocytes 1+; Burr Cells 1+; Ovalocytes 1+; Schistocytes Rare
[2024-02-06 09:07] VITALS: O2SAT 94
[2024-02-06] MEDS: FINASTERIDE 5 MG TABLET PO (10:04)
[2024-02-06] MEDS: FIDAXOMICIN 200 MG TABLET PO ×2 (10:04→20:39)
[2024-02-06] MEDS: predniSONE 5 MG TABLET PO (10:04)
[2024-02-06] MEDS: PANTOPRAZOLE 40 MG TABLET PO ×2 (10:04→20:39)
[2024-02-06] MEDS: FERROUS SULFATE 325 MG TABLET DR PO ×2 (10:04→17:30)
[2024-02-06 10:24] VITALS: BP 106/53; BP 121/45; BP 86/51; PULSE 77; PULSE 88; PULSE 90
--- NOTE | 2024-02-06 13:34 | PM.IMPN ---
Progress Note: A&P Assessment and Plan (1) C. difficile colitis: Code(s): A04.72 - Enterocolitis due to Clostridium difficile, not specified as recurrent Status: Acute Assessment and Plan: [address] diarrhea [address] CT imaging diffuse colitis. C diff positive. Patient started on Dificid after receiving 1 dose of IV metronidazole. On continuous IV fluids due to low oral intake as well as significant dehydration resulting in KEELEY and hyponatremia. 02/04: Decrease in loose stools reported overnight. Continue Dificid and Banatrol 02/06/24: Continue Dificid Case management checking pricing and insurance coverage (2) KEELEY (acute kidney injury): Code(s): N17.9 - Acute kidney failure, unspecified Status: Acute Assessment and Plan: Last known baseline creatinine 1-1.1 with greater than 60 estimated GFR. On admission creatinine was 1.7 and estimated GFR 41. This morning creatinine 1.4 with estimated GFR 51. Continue IV fluids and recheck tomorrow. 02/04: Cr 1.3, BUN 27, eGFR 54 02/06/24: Creatinine 1.4, EGFR 51 Continue to trend (3) Hyponatremia: Code(s): E87.1 - Hypo-osmolality and hyponatremia Status: Acute Assessment and Plan: Baseline sodium level appears to be 135-136 on prior labs, was 125 on admission and 126 this morning after IV fluids. Urine sodium less than 5. Continue IV fluids at this time and monitor for signs of fluid overload. 02/04: Sodium 128 on AM labs, recheck at 1630 to see if we can stop continuous IV fluids 02/06/24: Sodium 127 today, IVF discontinued Continue to trend (4) Dehydration: Code(s): E86.0 - Dehydration Status: Resolved Assessment and Plan: see above (5) Protein calorie malnutrition: Code(s): E46 - Unspecified protein-calorie malnutrition Status: Acute Assessment and Plan: Soft diet, regular food choices. Encourage oral intake to replace diarrhea stools. Decreased appetite due to abdominal discomfort and colitis. Start Banotrol as recommended by Heavy Threader. 02/04: Banatrol to be supplied to patient in another way so he can tolerate. 02/06/24: Continue Banatrol (6) Hypertension: Code(s): I10 - Essential (primary) hypertension Status: Chronic Assessment and Plan: 02/06/24: History of hypertension with borderline low blood pressure since admission likely due to KEELEY dehydration Blood pressure ranging 86/51 to 106/53 Will give Albumin today as he has 4+ pitting edema to BLE, 1-2+ pitting edema BUE Continue to hold home medication (7) Polymyalgia rheumatica: Code(s): M35.3 - Polymyalgia rheumatica Status: Chronic Assessment and Plan: 02/06/24: Continue prednisone Time Spent With Patient Time with patient: Greater than 35 minutes Subjective Date/time seen: 02/06/24 13:34 Interval history: Pulled from prior chart: 02/02: This is a pleasant 63-year-old male smoker with 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 The patient provides the following history. He finished radiation approximately 6 weeks ago and during that treatment he was reportedly on several different antibiotics for unclear reasons. The last 4 weeks he has had multiple episodes of watery, foul-smelling stools which have been yellow in color. The last several days he has developed intermittent, diffuse abdominal discomfort and cramping. His appetite has not been great but he is able to eat now and has had his feeding tube removed. He is starting to feel a bit weak and occasionally lightheaded with position changes. He denies fever, chills, sweats, hematemesis, melena, and hematochezia. No recent travel or sick contacts. No history of C diff. In the ED: He was afebrile on arrival. Blood pressures have been running at the low end of normal.
[2024-02-06 14:00] VITALS: BP 105/58; PULSE 78; RESP 16; TEMP 36.2; O2SAT 92
[2024-02-06] MEDS: ALBUMIN HUMAN 25% 25 GM/100 ML 100 ML IVPB (17:30)
[2024-02-06] MEDS: TAMSULOSIN HCL 0.4 MG CAPSULE PO (20:39)
[2024-02-06] MEDS: HYDROcodone/acetaminophen (*CRX) 5-325 MG TABLET 1 TAB PO (20:39)
[2024-02-06 21:25] VITALS: BP 98/51; PULSE 80; RESP 18; TEMP 36.6; O2SAT 96
[2024-02-07] MEDS: GABAPENTIN 400 MG CAPSULE PO ×5 (01:10→23:38)
[2024-02-07 04:10] VITALS: BP 118/46; PULSE 92; RESP 18; TEMP 36.5; O2SAT 97
[2024-02-07 05:58] LABS: Basophils Percent Auto 0.2 % (0.2-1.2); Eosinophils Absolute Auto 0.1 K/mm3 (0-0.3); Eosinophils Percent Auto 0.6 % (0-4.4); Hematocrit 24.9 % (42.0-52.0); Hemoglobin 7.7 g/dL (14.0-18.0); Immature Granulocyte Absolute 0.23 K/mm3 (0.00-0.031); Immature Granulocyte Percent A 1.7 % (0-0.5); Lymphocytes Absolute Auto 0.31 K/mm3 (0.9-3.2); Lymphocytes Percent Auto 2.3 % (18.3-44.2); Mean Corpuscular HGB Conc 30.9 g/dl (32-36); Mean Corpuscular Hemoglobin 30.4 pg (26-34); Mean Corpuscular Volume 98.4 fl (80-100); Mean Platelet Volume 9.1 fl (7.4-10.4); Monocytes Absolute Auto 0.6 K/mm3 (0.1-0.6); Monocytes Percent Auto 4.5 % (2.6-8.5); Neutrophils Percent Auto 90.7 % (45.5-73.1); Platelet Count Result 203 k/mm3 (150-375); Red Blood Count 2.53 M/mm3 (4.6-6.20); Red Cell Distribution Width 13.7 % (11.5-14.5); White Blood Count 13.2 K/mm3 (4.5-10.0)
[2024-02-07] MEDS: HYDROcodone/acetaminophen (*CRX) 5-325 MG TABLET 1 TAB PO ×3 (06:56→23:38)
[2024-02-07 07:01] LABS: Alanine Aminotransferase 10 U/L (6-50); Albumin Level 2.2 g/dL (3.5-5.1); Alkaline Phosphatase 73 U/L (38-126); Anion Gap 5 mmol/L (8-16); Aspartate Amino Transferase 14 U/L (17-59); Bilirubin,Total 0.8 mg/dL (0.2-1.3); Blood Urea Nitrogen 22 mg/dL (9-20); Calcium 7.1 mg/dL (8.4-10.2); Carbon Dioxide 16 mmol/L (22-30); Chloride 104 mmol/L (98-107); Estimated CRCL calculation 47 ml/min; Estimated Glomerular Filt Rate 47; Glucose 88 mg/dL (65-110); Magnesium 2.3 mg/dL (1.6-2.3); Potassium 3.7 mmol/L (3.4-5.0); Sodium 125 mmol/L (137-145)
--- NOTE | 2024-02-07 07:54 | PM.DS ---
DS: Admitting Diagnosis Discharge Date 02/07/24 Admitting Diagnosis Colitis Esophagitis with gastritis hyponatremia dehydration KEELEY protein calorie malnutrition polymyalgia rheumatica DS: Discharge Diagnosis Discharge Diagnosis (1) C. difficile colitis: Code(s): A04.72 - Enterocolitis due to Clostridium difficile, not specified as recurrent Status: Acute (2) KEELEY (acute kidney injury): Code(s): N17.9 - Acute kidney failure, unspecified Status: Acute (3) Hyponatremia: Code(s): E87.1 - Hypo-osmolality and hyponatremia Status: Acute (4) Dehydration: Code(s): E86.0 - Dehydration Status: Resolved (5) Protein calorie malnutrition: Code(s): E46 - Unspecified protein-calorie malnutrition Status: Acute (6) Hypertension: Code(s): I10 - Essential (primary) hypertension Status: Chronic (7) Polymyalgia rheumatica: Code(s): M35.3 - Polymyalgia rheumatica Status: Chronic DS: Summary Hospital Course Reason for hospitalization: Colitis Esophagitis with gastritis hyponatremia dehydration KEELEY protein calorie malnutrition polymyalgia rheumatica Hospital Course: Interval history: Pulled from prior chart: 02/02:? 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 The patient provides the following history. He finished radiation approximately 6 weeks ago and during that treatment he was reportedly on several different antibiotics for unclear reasons. The last 4 weeks he has had multiple episodes of watery, foul-smelling stools which have been yellow in color. The last several days he has developed intermittent, diffuse abdominal discomfort and cramping. His appetite has not been great but he is able to eat now and has had his feeding tube removed. He is starting to feel a bit weak and occasionally lightheaded with position changes. He denies fever, chills, sweats, hematemesis, melena, and hematochezia. No recent travel or sick contacts. No history of C diff. In the ED: He was afebrile on arrival. Blood pressures have been running at the low end of normal. Labs were significant for WBC count of 23.7 with 8% bands, hemoglobin 9.2, sodium 125, chloride 96, BUN 36, creatinine 1.70, lactic acid 0.7, total protein 5.0, albumin 2.8. CT of the abdomen pelvis showed moderate esophagitis/gastritis, diffuse colitis, small volume ascites, and large right hydrocele. He was given a 2 L normal saline bolus and was started on fidaxomicin for suspected C diff and he is being admitted in this setting for further hydration. 02/03:? Patient was admitted after experiencing 4 weeks of diarrhea since being on multiple rounds of antibiotics. CT scanning shows diffuse colitis.? Clinical suspicion by previous provider was C diff infection and he was started on Dificid.? C diff was positive.? This morning patient reports generalized abdominal pain states he has not received anything for pain at this point.? He notes that he still having significant diarrhea.? Initial labs yesterday had white blood cell count near 24,000 today that is down to 16.9.? Hemoglobin was around 9 yesterday is down to 7.9 this morning but likely to be delusional due to IV fluid boluses and maintenance fluids at high rate.? Patient has had prior oral surgery due to cancer and requires softer foods to to.? He was previously started a clear liquid diet which we will advanced to regular.? Patient will also be started on Banotrol due to recurrent loose stools.? Will monitor daily labs.? Sodium level noted to be 125 on admission is still 126 this morning. renal labs show what appears to be in KEELEY.? Ordered iron studies and B12/ folate due to anemia.? Suspect that anemia is due to slow loss from colon inflammation with frequent diarrhea as well some m
[2024-02-07 08:00] VITALS: BP 111/47; PULSE 71; RESP 16; TEMP 36.6; O2SAT 95
[2024-02-07] MEDS: PANTOPRAZOLE 40 MG TABLET PO ×2 (08:54→22:32)
[2024-02-07] MEDS: FINASTERIDE 5 MG TABLET PO (08:54)
[2024-02-07] MEDS: FIDAXOMICIN 200 MG TABLET PO ×2 (08:54→22:32)
[2024-02-07] MEDS: predniSONE 5 MG TABLET PO (08:54)
[2024-02-07] MEDS: FERROUS SULFATE 325 MG TABLET DR PO ×2 (08:54→18:00)
[2024-02-07 14:00] VITALS: BP 111/47; PULSE 71; RESP 16; TEMP 36.6; O2SAT 95
[2024-02-07] MEDS: ALBUMIN HUMAN 25% 25 GM/100 ML 200 ML IVPB (14:46)
--- NOTE | 2024-02-07 15:49 | P.PNIM_ITS ---
Progress Note: A&P Assessment and Plan (1) C. difficile colitis: Code(s): A04.72 - Enterocolitis due to Clostridium difficile, not specified as recurrent Status: Acute Assessment and Plan: [address] diarrhea [address] CT imaging diffuse colitis. C diff positive. Patient started on Dificid after receiving 1 dose of IV metronidazole. On continuous IV fluids due to low oral intake as well as significant dehydration resulting in KEELEY and hyponatremia. 02/04: Decrease in loose stools reported overnight. Continue Dificid and Banatrol 02/06/24: * Continue Dificid * Case management checking pricing and insurance coverage 02/07/2024: * Continue with Dificid for now while inpatient, will switch to vancomycin upon discharge as the Dificid is not going to be covered by insurance and has the very large [id number] cost. * Still reporting diarrhea overnight (2) KEELEY (acute kidney injury): Code(s): N17.9 - Acute kidney failure, unspecified Status: Acute Assessment and Plan: Last known baseline creatinine 1-1.1 with greater than 60 estimated GFR. On admission creatinine was 1.7 and estimated GFR 41. This morning creatinine 1.4 with estimated GFR 51. Continue IV fluids and recheck tomorrow. 02/04: Cr 1.3, BUN 27, eGFR 54 02/06/24: * Creatinine 1.4, EGFR 51 * Continue to trend 02/07/2024: * Creatinine 1.5, EGFR 47 * Continue to trend (3) Hyponatremia: Code(s): E87.1 - Hypo-osmolality and hyponatremia Status: Acute Assessment and Plan: Baseline sodium level appears to be 135-136 on prior labs, was 125 on admission and 126 this morning after IV fluids. Urine sodium less than 5. Continue IV fluids at this time and monitor for signs of fluid overload. 02/04: Sodium 128 on AM labs, recheck at 1630 to see if we can stop continuous IV fluids 02/06/24: * Sodium 127 today, IVF discontinued * Continue to trend 02/07/2024; * Sodium 125 * Continue to trend (4) Dehydration: Code(s): E86.0 - Dehydration Status: Resolved Assessment and Plan: see above (5) Protein calorie malnutrition: Code(s): E46 - Unspecified protein-calorie malnutrition Status: Acute Assessment and Plan: Soft diet, regular food choices. Encourage oral intake to replace diarrhea stools. Decreased appetite due to abdominal discomfort and colitis. Start Banotrol as recommended by Pullman Clerk. 02/04: Banatrol to be supplied to patient in another way so he can tolerate. 02/06/24: * Continue Banatrol 02/07/2024: * No change to current treatment plan (6) Hypertension: Code(s): I10 - Essential (primary) hypertension Status: Chronic Assessment and Plan: 02/06/24: * History of hypertension with borderline low blood pressure since admission likely due to KEELEY dehydration * Blood pressure ranging 86/51 to 106/53 * Will give Albumin today as he has 4+ pitting edema to BLE, 1-2+ pitting edema BUE * Continue to hold home medication 02/07/2024: * Blood pressure still on the low side of normal * Will give an additional round of albumin today * Continue to hold home medication (7) Polymyalgia rheumatica: Code(s): M35.3 - Polymyalgia rheumatica Status: Chronic Assessment and Plan: 02/06/24: * Continue prednisone 02/07/2024: * No change to current treatment Subjective Date/time seen: 02/07/24 15:49 Interval history: Pulled from prior chart: 02/02: This is a pleasant 6
--- NOTE | 2024-02-07 15:49 | PM.IMPN ---
Progress Note: A&P Assessment and Plan (1) C. difficile colitis: Code(s): A04.72 - Enterocolitis due to Clostridium difficile, not specified as recurrent Status: Acute Assessment and Plan: [address] diarrhea [address] CT imaging diffuse colitis. C diff positive. Patient started on Dificid after receiving 1 dose of IV metronidazole. On continuous IV fluids due to low oral intake as well as significant dehydration resulting in KEELEY and hyponatremia. 02/04: Decrease in loose stools reported overnight. Continue Dificid and Banatrol 02/06/24: Continue Dificid Case management checking pricing and insurance coverage 02/07/2024: Continue with Dificid for now while inpatient, will switch to vancomycin upon discharge as the Dificid is not going to be covered by insurance and has the very large [id number] cost. Still reporting diarrhea overnight (2) KEELEY (acute kidney injury): Code(s): N17.9 - Acute kidney failure, unspecified Status: Acute Assessment and Plan: Last known baseline creatinine 1-1.1 with greater than 60 estimated GFR. On admission creatinine was 1.7 and estimated GFR 41. This morning creatinine 1.4 with estimated GFR 51. Continue IV fluids and recheck tomorrow. 02/04: Cr 1.3, BUN 27, eGFR 54 02/06/24: Creatinine 1.4, EGFR 51 Continue to trend 02/07/2024: Creatinine 1.5, EGFR 47 Continue to trend (3) Hyponatremia: Code(s): E87.1 - Hypo-osmolality and hyponatremia Status: Acute Assessment and Plan: Baseline sodium level appears to be 135-136 on prior labs, was 125 on admission and 126 this morning after IV fluids. Urine sodium less than 5. Continue IV fluids at this time and monitor for signs of fluid overload. 02/04: Sodium 128 on AM labs, recheck at 1630 to see if we can stop continuous IV fluids 02/06/24: Sodium 127 today, IVF discontinued Continue to trend 02/07/2024; Sodium 125 Continue to trend (4) Dehydration: Code(s): E86.0 - Dehydration Status: Resolved Assessment and Plan: see above (5) Protein calorie malnutrition: Code(s): E46 - Unspecified protein-calorie malnutrition Status: Acute Assessment and Plan: Soft diet, regular food choices. Encourage oral intake to replace diarrhea stools. Decreased appetite due to abdominal discomfort and colitis. Start Banotrol as recommended by Cleaner And Presser. 02/04: Banatrol to be supplied to patient in another way so he can tolerate. 02/06/24: Continue Banatrol 02/07/2024: No change to current treatment plan (6) Hypertension: Code(s): I10 - Essential (primary) hypertension Status: Chronic Assessment and Plan: 02/06/24: History of hypertension with borderline low blood pressure since admission likely due to KEELEY dehydration Blood pressure ranging 86/51 to 106/53 Will give Albumin today as he has 4+ pitting edema to BLE, 1-2+ pitting edema BUE Continue to hold home medication 02/07/2024: Blood pressure still on the low side of normal Will give an additional round of albumin today Continue to hold home medication (7) Polymyalgia rheumatica: Code(s): M35.3 - Polymyalgia rheumatica Status: Chronic Assessment and Plan: 02/06/24: Continue prednisone 02/07/2024: No change to current treatment Subjective Date/time seen: 02/07/24 15:49 Interval history: Pulled from prior chart: 02/02: This is a pleasant 63-year-old male smoker with 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 The patient provides the following history. He finished radiation approximately 6 weeks ago and during that treatment he was reportedly on several different antibiotics for unclear reasons. The last 4 weeks he has had multiple episodes of watery, foul-smelling stools which have be
[2024-02-07 19:24] VITALS: BP 109/43; PULSE 69; RESP 16; TEMP 36.4; O2SAT 90
[2024-02-07] MEDS: TAMSULOSIN HCL 0.4 MG CAPSULE PO (22:32)
[2024-02-08 04:45] VITALS: BP 118/47; PULSE 87; RESP 20; TEMP 36.4; O2SAT 90
[2024-02-08 05:43] LABS: Basophils Percent Auto 0.2 % (0.2-1.2); Eosinophils Absolute Auto 0.1 K/mm3 (0-0.3); Eosinophils Percent Auto 1.1 % (0-4.4); Hematocrit 26.5 % (42.0-52.0); Hemoglobin 8.4 g/dL (14.0-18.0); Immature Granulocyte Absolute 0.19 K/mm3 (0.00-0.031); Immature Granulocyte Percent A 1.6 % (0-0.5); Lymphocytes Percent Auto 3.5 % (18.3-44.2); Mean Corpuscular HGB Conc 31.7 g/dl (32-36); Mean Corpuscular Hemoglobin 30.8 pg (26-34); Mean Corpuscular Volume 97.1 fl (80-100); Mean Platelet Volume 9.1 fl (7.4-10.4); Monocytes Absolute Auto 0.6 K/mm3 (0.1-0.6); Monocytes Percent Auto 5.3 % (2.6-8.5); Neutrophils Absolute Auto 10.2 K/mm3 (1.3-6.7); Neutrophils Percent Auto 88.3 % (45.5-73.1); Platelet Count Result 210 k/mm3 (150-375); Red Blood Count 2.73 M/mm3 (4.6-6.20); Red Cell Distribution Width 13.9 % (11.5-14.5); White Blood Count 11.5 K/mm3 (4.5-10.0)
[2024-02-08 05:59] LABS: Alanine Aminotransferase 10 U/L (6-50); Albumin Level 2.7 g/dL (3.5-5.1); Alkaline Phosphatase 72 U/L (38-126); Anion Gap 4 mmol/L (8-16); Aspartate Amino Transferase 13 U/L (17-59); Bilirubin,Total 0.8 mg/dL (0.2-1.3); Blood Urea Nitrogen 18 mg/dL (9-20); Calcium 7.4 mg/dL (8.4-10.2); Carbon Dioxide 20 mmol/L (22-30); Chloride 103 mmol/L (98-107); Estimated CRCL calculation 54 ml/min; Estimated Glomerular Filt Rate 55; Glucose 97 mg/dL (65-110); Magnesium 2.1 mg/dL (1.6-2.3); Potassium 3.6 mmol/L (3.4-5.0); Sodium 127 mmol/L (137-145)
[2024-02-08] MEDS: GABAPENTIN 400 MG CAPSULE PO ×3 (06:25→18:44)
[2024-02-08] MEDS: predniSONE 5 MG TABLET PO (09:20)
[2024-02-08] MEDS: PANTOPRAZOLE 40 MG TABLET PO ×2 (09:20→21:02)
[2024-02-08] MEDS: FERROUS SULFATE 325 MG TABLET DR PO ×2 (09:20→18:44)
[2024-02-08] MEDS: FIDAXOMICIN 200 MG TABLET PO ×2 (09:20→21:02)
[2024-02-08] MEDS: FINASTERIDE 5 MG TABLET PO (09:20)
[2024-02-08 09:28] VITALS: BP 100/54; PULSE 90; RESP 18; O2SAT 91
[2024-02-08] MEDS: HYDROcodone/acetaminophen (*CRX) 5-325 MG TABLET 1 TAB PO ×2 (09:33→21:03)
--- NOTE | 2024-02-08 14:24 | P.PNIM_ITS ---
Progress Note: A&P Assessment and Plan (1) C. difficile colitis: Code(s): A04.72 - Enterocolitis due to Clostridium difficile, not specified as recurrent Status: Acute Assessment and Plan: [address] of diarrhea with CT imaging diffuse colitis. C diff positive. Patient started on Dificid after receiving 1 dose of IV metronidazole. On continuous IV fluids due to low oral intake as well as significant dehydration resulting in KEELEY and hyponatremia. 02/04: Decrease in loose stools reported overnight. Continue Dificid and Banatrol 02/06/24: * Continue Dificid * Case management checking pricing and insurance coverage 02/07/2024: * Continue with Dificid for now while inpatient, will switch to vancomycin upon discharge as the Dificid is not going to be covered by insurance and has the very large [id number] cost. * Still reporting diarrhea overnight 02/08/24: * Continue with current treatment plan (2) KEELEY (acute kidney injury): Code(s): N17.9 - Acute kidney failure, unspecified Status: Acute Assessment and Plan: Last known baseline creatinine 1-1.1 with greater than 60 estimated GFR. On admission creatinine was 1.7 and estimated GFR 41. This morning creatinine 1.4 with estimated GFR 51. Continue IV fluids and recheck tomorrow. 02/04: Cr 1.3, BUN 27, eGFR 54 02/06/24: * Creatinine 1.4, EGFR 51 * Continue to trend 02/07/2024: * Creatinine 1.5, EGFR 47 * Continue to trend 02/08/24: * Creatinine 1.3 * Continue to trend (3) Hyponatremia: Code(s): E87.1 - Hypo-osmolality and hyponatremia Status: Acute Assessment and Plan: Baseline sodium level appears to be 135-136 on prior labs, was 125 on admission and 126 this morning after IV fluids. Urine sodium less than 5. Continue IV fluids at this time and monitor for signs of fluid overload. 02/04: Sodium 128 on AM labs, recheck at 1630 to see if we can stop continuous IV fluids 02/06/24: * Sodium 127 today, IVF discontinued * Continue to trend 02/07/2024; * Sodium 125 * Continue to trend 02/08/24: * Na+127 (4) Dehydration: Code(s): E86.0 - Dehydration Status: Resolved Assessment and Plan: see above (5) Protein calorie malnutrition: Code(s): E46 - Unspecified protein-calorie malnutrition Status: Acute Assessment and Plan: Soft diet, regular food choices. Encourage oral intake to replace diarrhea stools. Decreased appetite due to abdominal discomfort and colitis. Start Banotrol as recommended by [employer]. 02/04: Banatrol to be supplied to patient in another way so he can tolerate. 02/06/24: * Continue Banatrol 02/07/2024: * No change to current treatment plan (6) Hypertension: Code(s): I10 - Essential (primary) hypertension Status: Chronic Assessment and Plan: 02/06/24: * History of hypertension with borderline low blood pressure since admission likely due to KEELEY dehydration * Blood pressure ranging 86/51 to 106/53 * Will give Albumin today as he has 4+ pitting edema to BLE, 1-2+ pitting edema BUE * Continue to hold home medication 02/07/2024: * Blood pressure still on the low side of normal * Will give an additional round of albumin today * Continue to hold home medication 02/08/2024: * Will start Midodrine today * Start Lasix 20 mg IVP BID for diuresis now that creatinine is back to baseline (7) Polymyalgia rheumatica: Code(s): M35.3 - Polymyalgia rheumatica
--- NOTE | 2024-02-08 14:24 | PM.IMPN ---
Progress Note: A&P Assessment and Plan (1) C. difficile colitis: Code(s): A04.72 - Enterocolitis due to Clostridium difficile, not specified as recurrent Status: Acute Assessment and Plan: [address] of diarrhea with CT imaging diffuse colitis. C diff positive. Patient started on Dificid after receiving 1 dose of IV metronidazole. On continuous IV fluids due to low oral intake as well as significant dehydration resulting in KEELEY and hyponatremia. 02/04: Decrease in loose stools reported overnight. Continue Dificid and Banatrol 02/06/24: Continue Dificid Case management checking pricing and insurance coverage 02/07/2024: Continue with Dificid for now while inpatient, will switch to vancomycin upon discharge as the Dificid is not going to be covered by insurance and has the very large [id number] cost. Still reporting diarrhea overnight 02/08/24: Continue with current treatment plan (2) KEELEY (acute kidney injury): Code(s): N17.9 - Acute kidney failure, unspecified Status: Acute Assessment and Plan: Last known baseline creatinine 1-1.1 with greater than 60 estimated GFR. On admission creatinine was 1.7 and estimated GFR 41. This morning creatinine 1.4 with estimated GFR 51. Continue IV fluids and recheck tomorrow. 02/04: Cr 1.3, BUN 27, eGFR 54 02/06/24: Creatinine 1.4, EGFR 51 Continue to trend 02/07/2024: Creatinine 1.5, EGFR 47 Continue to trend 02/08/24: Creatinine 1.3 Continue to trend (3) Hyponatremia: Code(s): E87.1 - Hypo-osmolality and hyponatremia Status: Acute Assessment and Plan: Baseline sodium level appears to be 135-136 on prior labs, was 125 on admission and 126 this morning after IV fluids. Urine sodium less than 5. Continue IV fluids at this time and monitor for signs of fluid overload. 02/04: Sodium 128 on AM labs, recheck at 1630 to see if we can stop continuous IV fluids 02/06/24: Sodium 127 today, IVF discontinued Continue to trend 02/07/2024; Sodium 125 Continue to trend 02/08/24: Na+127 (4) Dehydration: Code(s): E86.0 - Dehydration Status: Resolved Assessment and Plan: see above (5) Protein calorie malnutrition: Code(s): E46 - Unspecified protein-calorie malnutrition Status: Acute Assessment and Plan: Soft diet, regular food choices. Encourage oral intake to replace diarrhea stools. Decreased appetite due to abdominal discomfort and colitis. Start Banotrol as recommended by [employer]. 02/04: Banatrol to be supplied to patient in another way so he can tolerate. 02/06/24: Continue Banatrol 02/07/2024: No change to current treatment plan (6) Hypertension: Code(s): I10 - Essential (primary) hypertension Status: Chronic Assessment and Plan: 02/06/24: History of hypertension with borderline low blood pressure since admission likely due to KEELEY dehydration Blood pressure ranging 86/51 to 106/53 Will give Albumin today as he has 4+ pitting edema to BLE, 1-2+ pitting edema BUE Continue to hold home medication 02/07/2024: Blood pressure still on the low side of normal Will give an additional round of albumin today Continue to hold home medication 02/08/2024: Will start Midodrine today Start Lasix 20 mg IVP BID for diuresis now that creatinine is back to baseline (7) Polymyalgia rheumatica: Code(s): M35.3 - Polymyalgia rheumatica Status: Chronic Assessment and Plan: 02/06/24: Continue prednisone 02/07/2024: No change to current treatment Time Spent With Patient Time with patient: 25 - 35 minutes Subjective Date/time seen: 02/08/24 14:24 Interval history: Pulled from prior chart: 02/02: This is a pleasant 63-year-old male smoker with 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
[2024-02-08 14:25] VITALS: BP 100/52; PULSE 76; RESP 16; TEMP 36.6; O2SAT 96
[2024-02-08] MEDS: FUROSEMIDE INJ 40 MG/4 ML VIAL 20 MG IV PUSH ×2 (14:28→18:44)
[2024-02-08] MEDS: MIDODRINE HCL 2.5 MG TABLET 5 MG PO ×2 (14:40→18:44)
[2024-02-08 18:46] VITALS: BP 106/52
[2024-02-08 20:38] VITALS: BP 124/53; PULSE 74; RESP 16; TEMP 36.8; O2SAT 95
[2024-02-08] MEDS: TAMSULOSIN HCL 0.4 MG CAPSULE PO (21:04)
[2024-02-09 04:35] VITALS: BP 100/42; PULSE 100; RESP 16; TEMP 36.6; O2SAT 92
[2024-02-09 06:01] LABS: Basophils Percent Auto 0.3 % (0.2-1.2); Eosinophils Absolute Auto 0.2 K/mm3 (0-0.3); Eosinophils Percent Auto 1.4 % (0-4.4); Hematocrit 27.1 % (42.0-52.0); Hemoglobin 8.8 g/dL (14.0-18.0); Immature Granulocyte Absolute 0.19 K/mm3 (0.00-0.031); Immature Granulocyte Percent A 1.8 % (0-0.5); Lymphocytes Absolute Auto 0.39 K/mm3 (0.9-3.2); Lymphocytes Percent Auto 3.6 % (18.3-44.2); Mean Corpuscular HGB Conc 32.5 g/dl (32-36); Mean Corpuscular Hemoglobin 31.2 pg (26-34); Mean Corpuscular Volume 96.1 fl (80-100); Mean Platelet Volume 9.3 fl (7.4-10.4); Monocytes Absolute Auto 0.6 K/mm3 (0.1-0.6); Monocytes Percent Auto 5.1 % (2.6-8.5); Neutrophils Absolute Auto 9.4 K/mm3 (1.3-6.7); Neutrophils Percent Auto 87.8 % (45.5-73.1); Platelet Count Result 222 k/mm3 (150-375); Red Blood Count 2.82 M/mm3 (4.6-6.20); Red Cell Distribution Width 13.9 % (11.5-14.5); White Blood Count 10.7 K/mm3 (4.5-10.0)
[2024-02-09 06:14] LABS: Alanine Aminotransferase 10 U/L (6-50); Albumin Level 2.7 g/dL (3.5-5.1); Alkaline Phosphatase 78 U/L (38-126); Anion Gap 4 mmol/L (8-16); Aspartate Amino Transferase 15 U/L (17-59); Bilirubin,Total 0.8 mg/dL (0.2-1.3); Blood Urea Nitrogen 16 mg/dL (9-20); Calcium 7.6 mg/dL (8.4-10.2); Carbon Dioxide 22 mmol/L (22-30); Chloride 101 mmol/L (98-107); Estimated CRCL calculation 50 ml/min; Estimated Glomerular Filt Rate 51; Glucose 95 mg/dL (65-110); Magnesium 1.8 mg/dL (1.6-2.3); Potassium 3.3 mmol/L (3.4-5.0); Sodium 127 mmol/L (137-145)
[2024-02-09] MEDS: GABAPENTIN 400 MG CAPSULE PO ×3 (06:36→12:34)
--- NOTE | 2024-02-09 09:08 | PM.DS ---
DS: Admitting Diagnosis Discharge Date 02/09/24 Admitting Diagnosis colitis esophagitis with gastritis hyponatremia dehydration acute kidney injury protein calorie malnutrition polymyalgia rheumatica DS: Discharge Diagnosis Discharge Diagnosis (1) C. difficile colitis: Code(s): A04.72 - Enterocolitis due to Clostridium difficile, not specified as recurrent Status: Acute (2) KEELEY (acute kidney injury): Code(s): N17.9 - Acute kidney failure, unspecified Status: Acute (3) Hyponatremia: Code(s): E87.1 - Hypo-osmolality and hyponatremia Status: Acute (4) Dehydration: Code(s): E86.0 - Dehydration Status: Resolved (5) Protein calorie malnutrition: Code(s): E46 - Unspecified protein-calorie malnutrition Status: Acute (6) Hypertension: Code(s): I10 - Essential (primary) hypertension Status: Chronic (7) Polymyalgia rheumatica: Code(s): M35.3 - Polymyalgia rheumatica Status: Chronic DS: Summary Hospital Course Reason for hospitalization: colitis esophagitis with gastritis hyponatremia dehydration acute kidney injury protein calorie malnutrition polymyalgia rheumatica Hospital Course: Interval history: Pulled from prior chart: 02/02:? 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 The patient provides the following history. He finished radiation approximately 6 weeks ago and during that treatment he was reportedly on several different antibiotics for unclear reasons. The last 4 weeks he has had multiple episodes of watery, foul-smelling stools which have been yellow in color. The last several days he has developed intermittent, diffuse abdominal discomfort and cramping. His appetite has not been great but he is able to eat now and has had his feeding tube removed. He is starting to feel a bit weak and occasionally lightheaded with position changes. He denies fever, chills, sweats, hematemesis, melena, and hematochezia. No recent travel or sick contacts. No history of C diff. In the ED: He was afebrile on arrival. Blood pressures have been running at the low end of normal. Labs were significant for WBC count of 23.7 with 8% bands, hemoglobin 9.2, sodium 125, chloride 96, BUN 36, creatinine 1.70, lactic acid 0.7, total protein 5.0, albumin 2.8. CT of the abdomen pelvis showed moderate esophagitis/gastritis, diffuse colitis, small volume ascites, and large right hydrocele. He was given a 2 L normal saline bolus and was started on fidaxomicin for suspected C diff and he is being admitted in this setting for further hydration. 02/03:? Patient was admitted after experiencing 4 weeks of diarrhea since being on multiple rounds of antibiotics. CT scanning shows diffuse colitis.? Clinical suspicion by previous provider was C diff infection and he was started on Dificid.? C diff was positive.? This morning patient reports generalized abdominal pain states he has not received anything for pain at this point.? He notes that he still having significant diarrhea.? Initial labs yesterday had white blood cell count near 24,000 today that is down to 16.9.? Hemoglobin was around 9 yesterday is down to 7.9 this morning but likely to be delusional due to IV fluid boluses and maintenance fluids at high rate.? Patient has had prior oral surgery due to cancer and requires softer foods to to.? He was previously started a clear liquid diet which we will advanced to regular.? Patient will also be started on Banotrol due to recurrent loose stools.? Will monitor daily labs.? Sodium level noted to be 125 on admission is still 126 this morning. renal labs show what appears to be in KEELEY.? Ordered iron studies and B12/ folate due to anemia.? Suspect that anemia is due to slow loss from colon infla
[2024-02-09 09:29] VITALS: BP 100/53
[2024-02-09] MEDS: FUROSEMIDE INJ 40 MG/4 ML VIAL 20 MG IV PUSH (09:30)
[2024-02-09] MEDS: FIDAXOMICIN 200 MG TABLET PO (09:30)
[2024-02-09] MEDS: PANTOPRAZOLE 40 MG TABLET PO (09:30)
[2024-02-09] MEDS: FERROUS SULFATE 325 MG TABLET DR PO (09:30)
[2024-02-09] MEDS: MIDODRINE HCL 2.5 MG TABLET 5 MG PO ×2 (09:30→12:34)
[2024-02-09] MEDS: FINASTERIDE 5 MG TABLET PO (09:30)
[2024-02-09] MEDS: predniSONE 5 MG TABLET PO (09:30)
--- NOTE | 2024-02-09 11:32 | PC.NURSE ---
Patient refusing bed alarm after education about reason for bed alarm and safety. Patient educated to call for assistance before ambulating
== END 2024-02-09 12:55 | disposition home or self-care (01) | DRG 372 ==
LOC: ANHED 16:24 → ANH2MED 22:24
PROVIDERS: Internal Medicine; Nurse Practitioner; Nurse Practitioner Family; Physician Assistant; Admitting Provider Internal Medicine; Emergency Provider Emergency Medicine; PCP Internal Medicine; Visit Provider Nurse Practitioner Acute Care
DX: A04.72 Enterocolitis due to Clostridium difficile, not specified as recurrent (principal); E44.0 Moderate protein-calorie malnutrition; E87.1 Hypo-osmolality and hyponatremia; N17.9 Acute kidney failure, unspecified; Z68.27 Body mass index [BMI] 27.0-27.9, adult; E86.0 Dehydration; D64.9 Anemia, unspecified; I10 Essential (primary) hypertension; M35.3 Polymyalgia rheumatica; K20.90 Esophagitis, unspecified without bleeding; K29.70 Gastritis, unspecified, without bleeding; Z85.819 Personal history of malignant neoplasm of unspecified site of lip, oral cavity, and pharynx
CPT/HCPCS: 36415; 74177; 80048; 80053; 80069; 82570; 82607; 82728; 82746; 82948; 83540; 83550; 83605; 83690; 83735; 83880; 83930; 84300; 84443; 85025; 85027; 87040; 87045; 87427; 87449; 87493; 96361; 96374; 96375; 99285; A9270; C9113; G0378; J0696; J1836; J1940; J7030; J7512; P9047; Q9967

== ENCOUNTER 2024-02-13 15:48 | Outpatient (CLI) | payer OTHER, SELFPAY ==
--- NOTE | 2024-02-13 15:56 | ECHO_ITS ---
Patient Info Name: Emmanuel Arciniega Age: 63 years : 1960 Gender: Male Ht: 71 in Wt: 180 lbs BSA: 2.03 m2 HR: 77 bpm BP: 121 / 62 mmHg Heart Rhythm: Sinus Rhythm Technical Quality: Good Exam Date: 02/13/2024 4:10 PM Exam Location: Echo Lab Patient Status: Outpatient Admit Date: 02/13/2024 Staff Ordering Physician: Ngozi Aguilar APRN Dialysis Registered Nurse: Clarita Ruiz RDCS Attending Provider: Ngozi Aguilar APRN Referring Physician: Jeff PAIZ; Exam Type: CA echo doppler color flow Study Info Indications - LOCALIZED EDEMA Complete two-dimensional, color flow and Doppler transthoracic echocardiogram is performed. Summary 1. Complete two-dimensional, color flow and Doppler transthoracic echocardiogram is performed. 2. Normal left ventricular size thickness and systolic function. 3. Grade 1 diastolic noncompliance. 4. No valvular abnormalities. Left Ventricle Left ventricular chamber dimension is normal. Left ventricular systolic function is normal, estimated at 55-60%. The left ventricular diastolic function is grade I diastolic dysfunction. Right Ventricle Right ventricular chamber dimension is normal. Left Atria Left atrial chamber dimension is normal. Right Atria Right atrial chamber dimension is normal. Aortic Valve The aortic valve is normal. Pulmonic Valve The pulmonic valve is not well visualized. Mitral Valve The mitral valve has normal leaflets. Tricuspid Valve The tricuspid valve leaflets are normal. Pericardium/Pleural The pericardium appears normal. Aorta The aortic root size at the sinus of Valsalva is normal. Left Ventricular Outflow Tract Name Value Normal LVOT 2D LVOT Diameter 2.1 cm LVOT Doppler LVOT Peak Gradient 5 mmHg LVOT Mean Gradient 3 mmHg LVOT VTI 26 cm LVOT VTI/AV VTI Ratio 1.0 LVOT Stroke Volume 90 ml LVOT CO 5.9 l/min LVOT CI 2.9 l/min/m2 Pulmonic Valve Name Value Normal RVOT Doppler RVOT Peak Gradient 2 mmHg PV Doppler PV Peak Gradient 3 mmHg Mitral Valve Name Value Normal MV Doppler MV Decel Wagoner 238 cm/s2 MV PHT 90 ms MV Area (PHT) 2.4 cm2 4.0-5.0 MV Diastolic Function MV E Peak Velocity 74 cm/s MV A Peak Ve
== END 2024-02-13 15:49 | disposition home or self-care (01) ==
LOC: ANHCARD 15:49
PROVIDERS: PCP Internal Medicine; Visit Provider Nurse Practitioner Acute Care
DX: I95.9 Hypotension, unspecified (principal); R60.0 Localized edema
CPT/HCPCS: 93306

== ENCOUNTER 2024-02-27 11:09 | Outpatient (CLI) | payer OTHER, SELFPAY ==
--- NOTE | ~2024-02-27 | XR_ITS ---
EXAMINATION: XR lumbar spine 6V w bending DATE: 02/27/2024 11:40 INDICATION: Left-sided low back pain. TECHNIQUE: 7 views of lumbar spine including flexion and extension views were obtained. COMPARISON: CT abdomen and pelvis 02/03/2024 FINDINGS: There is 5 degrees dextrocurvature of lumbar spine. There is mild height loss of L3 vertebr al body on the left. The spine is hypomobile with flexion and extension. There are endplate osteophyt es at most levels. There is mildly decreased disc height at L3-L4 and L4-L5. There is multilevel mild facet joint osteophytes. IMPRESSION: 1. Pathologic fracture of L3, consistent with metastatic disease or multiple myeloma. Reviewed, dictated and finalized at location A. IMPRESSION: 1. Pathologic fracture of L3, consistent with metastatic disease or multiple my eloma.
== END 2024-02-27 11:10 | disposition home or self-care (01) ==
PROVIDERS: PCP Internal Medicine; Visit Provider Physician Assistant
DX: S32.038D Other fracture of third lumbar vertebra, subsequent encounter for fracture with routine healing (principal); X58.XXXD Exposure to other specified factors, subsequent encounter
CPT/HCPCS: 72114